=== PATIENT | female | born 1995 | race African-American/Black ===

== ENCOUNTER 2021-06-16 15:09 | Emergency (ER) | payer MEDICAID, SELFPAY ==
[2021-06-16 16:27] LABS: Bilirubin Neg (Negative); Blood, Urine Negative (Negative); Clarity Clear (Clear); Glucose, Urine (Dipstick) Normal (Negative); Ketone, Urine Negative (Negative); Leukocyte 500 (Negative); Nitrite Negative (Negative); Protein, Urine (Dipstick) Negative (Neg-Trace); Urobilinogen Normal mg/dL (Less than 2)
[2021-06-16 16:29] LABS: Pregnancy Test - Urine (BHCG) Negative (Negative); Pregu Control Background? CLEAR/WHITE (CLR/WHITE); Pregu Control Bar Appear? YES (CONTROL BAR)
[2021-06-16 16:32] LABS: RBC/HPF 0-3 HPF (0-3)
[2021-06-16 16:33] LABS: Bacteria/HPF Rare-Few HPF (None Seen)
[2021-06-16] MEDS ORDERED: cefTRIAXone\\ROCEPHIN 500 MG VIAL ONE (17:05)
[2021-06-16] MEDS ORDERED: Sterile Water 10 ML ONE (17:05)
== END 2021-06-16 17:40 | disposition home or self-care (01) ==
LOC: CSHERS 15:09
DX: A64 Unspecified sexually transmitted disease (principal)
CPT/HCPCS: 81003; 81015; 81025; 87491; 87591; 96372; 99283; J0696

== ENCOUNTER 2021-06-29 12:42 | Emergency (ER) | payer MEDICAID, OTHER ==
[2021-06-29] MEDS ORDERED: Ondansetron PF 4 MG/2 ML Vial ONE (13:51)
[2021-06-29 14:06] LABS: Hemoglobin 14.9 g/dL (12.0-15.5); Mean Corpuscular HGB CONC 32.7 g/dL (32.0-36.0); Mean Corpuscular Hemoglobin 26.6 pg (27.0-33.0); Mean Corpuscular Volume 81.3 fl (81.6-98.3); RBC Distribution Width 15.2 % (11.5-14.5); White Blood Cell (WBC) Count 5.7 10x3/uL (3.5-10.5)
[2021-06-29 14:12] LABS: BHCG - Serum Negative (NEGATIVE); Pregs Control Background? CLEAR/WHITE (CLR/WHITE); Pregs Control Bar Appear? YES (CONTROL BAR)
[2021-06-29 14:14] LABS: #Monocytes 0.4 10x3/uL (0.0-1.1); #Neutrophils 4.3 10x3/uL (1.5-8.4); %Basophils 0.2 % (0.0-2.0); %Eosinophils 0.7 % (0.0-6.0); %Lymphocytes 16.7 % (18.0-47.0); %Monocytes 6.4 % (0.0-10.0); %Neutrophils 75.5 % (40.0-75.0); Mean Platelet Volume 9.9 fl (7.4-10.4); Platelet Count 275 10x3/uL (150-450)
[2021-06-29 14:16] LABS: ALT (SGPT) 18 U/L (8-55); AST (SGOT) 23 U/L (5-34); Albumin 5.1 g/dL (3.5-5.0); Alkaline Phosphatase 82 U/L (40-110); Anion Gap 15 mmol/L (10-20); BUN (Urea Nitrogen) 14 mg/dL (7.0-18.7); Bilirubin, Total 0.8 mg/dL (0.2-1.2); Calc. Creatinine Clearance 0 mL/min (70-130); Carbon Dioxide 23 mmol/L (22-29); Chloride 104 mmol/L (98-107); Globulin 4.1 g/dL (2.4-3.5); Glucose 91 mg/dL (70-105); Lipase 26 U/L (8-78); Potassium 4.4 mmol/L (3.5-5.1); Protein, Total 9.2 g/dL (6.0-8.3); Sodium 138 mmol/L (136-145)
== END 2021-06-29 14:45 | disposition home or self-care (01) ==
LOC: CSHERS 12:42
DX: E86.0 Dehydration (principal); F17.210 Nicotine dependence, cigarettes, uncomplicated
CPT/HCPCS: 80053; 83605; 83690; 84703; 85025; 96374; J2405

== ENCOUNTER 2023-04-29 14:00 | Emergency (ER) | payer SELFPAY ==
[2023-04-29 15:20] LABS: Pregnancy Test - Urine (BHCG) POSITIVE (Negative); Pregu Control Background? CLEAR/WHITE (CLR/WHITE); Pregu Control Bar Appear? YES (CONTROL BAR); Specific Gravity 1.005 (1.002-1.036)
== END 2023-04-29 16:10 | disposition home or self-care (01) ==
LOC: CSHERS 14:00
DX: O99.891 Other specified diseases and conditions complicating pregnancy (principal); R11.0 Nausea; O92.29 Other disorders of breast associated with pregnancy and the puerperium; Z3A.01 Less than 8 weeks gestation of pregnancy
CPT/HCPCS: 81025; 84702; 99282

== ENCOUNTER 2023-08-07 13:11 | Outpatient (CLI) | payer BC, MEDICAID | END 2023-08-07 13:12 | disposition home or self-care (01) | LOC: CSHULT 13:11 | PROVIDERS: ATTEND Nurse Practitioner Women's Health | DX: O09.892 Supervision of other high risk pregnancies, second trimester (principal); Z3A.22 22 weeks gestation of pregnancy | CPT/HCPCS: 76805 ==

== ENCOUNTER 2023-10-18 10:29 | Emergency (ER) | payer BC, OTHER | END 2023-10-18 11:20 | disposition home or self-care (01) | LOC: CSHERS 10:29 | DX: O23.593 Infection of other part of genital tract in pregnancy, third trimester (principal); Z3A.32 32 weeks gestation of pregnancy | CPT/HCPCS: 87480; 87510; 87660; 99283 ==

== ENCOUNTER 2023-11-26 13:02 | Day surgery (SDC) | payer BC, OTHER ==
[2023-11-26] MEDS ORDERED: hydrALAZINE 20 MG/ML VIAL SLOW IVP PRN (14:57)
[2023-11-26] MEDS: Acetaminophen 325 MG TAB PO SCH (15:20)
== END 2023-11-26 15:46 | disposition home health service (06) ==
LOC: CSHLD/OP 13:02
PROVIDERS: ATTEND Family Medicine
DX: O47.1 False labor at or after 37 completed weeks of gestation (principal); Z79.82 Long term (current) use of aspirin; Z79.899 Other long term (current) drug therapy; Z3A.38 38 weeks gestation of pregnancy